=== PATIENT | female | born 1950 | race Caucasian/White ===

== ENCOUNTER → 2016-08-05 | Outpatient (CLI) | payer MEDICARE, OTHER ==
[~2016-08-05] MED LIST: GLUMETZA500 MG PO; LIPITOR40 MG PO; MELATONIN2.5 MG PO; OSCAL + D500 MG PO; OSTEO BI-FLEX1 EACH PO; PRILOSEC20 MG PO; PRINIVIL OR ZES10 MG PO; THERA-VITE W/ B1 TAB PO; ULTRAM50 MG PO
--- NOTE | 2016-08-05 11:47 | NUR ---
Met with patient prior to breast biopsy. Introduced self and role of nurse navigator. No questions or concerns. Will call on Monday.
== END | disposition disaster alternative care site (69) ==
LOC: GPOC 08-03 09:00 → GBCOE 09:30 → GPOC 10:00
DX: D05.12 Intraductal carcinoma in situ of left breast (principal); R92.0 Mammographic microcalcification found on diagnostic imaging of breast; Z88.2 Allergy status to sulfonamides
CPT/HCPCS: G0206

== ENCOUNTER → 2016-11-15 | Outpatient (CLI) | payer MEDICARE, OTHER | LOC: GBCOE 12:43 | DX: D05.12 Intraductal carcinoma in situ of left breast (principal) | CPT/HCPCS: G0206; G0279 ==